=== PATIENT | female | born 1945 | race Caucasian/White ===

== ENCOUNTER → 2025-08-26 10:21 | Outpatient (REF) | payer MEDICARE, OTHER, SELFPAY | LOC: RCS 10:21 | PROVIDERS: ATTENDING PHYSICIAN Internal Medicine Cardiovascular Disease; REFERRING PHYSICIAN Student in an Organized Health Care Education/Training Program | DX: I27.29 Other secondary pulmonary hypertension (principal) | CPT/HCPCS: 93306 ==